=== PATIENT | male | born 1955 | race African-American/Black ===

== ENCOUNTER 2019-08-23 10:19 | Inpatient (IN) | payer MEDICAID, OTHER ==
[~2019-08-23] VITALS: Ht 185.4 cm; Wt 77.3 kg
[2019-08-23] MEDS ORDERED: SODIUM CHLORIDE 0.9% 1,000 ML IV ONE (10:41)
[2019-08-23] MEDS ORDERED: LORAZEPAM 2MG/ML CPJ IM STA (10:43)
[2019-08-23] MEDS ORDERED: OLANZAPINE 10 MG/VIAL IM ONE (10:45)
[2019-08-23 11:41] LABS: *AMPHETAMINES SCREEN URINE PRESUMTIVE POSITIVE (NEGATIVE)
[2019-08-23 11:42] LABS: *BARBITURATES SCREEN URINE NEGATIVE (NEGATIVE); *BENZODIAZEPINES SCREEN URINE NEGATIVE (NEGATIVE); *COCAINE SCREEN URINE PRESUMTIVE POSITIVE (NEGATIVE); METHADONE URINE SCREEN NEGATIVE (NEGATIVE); OPIATES URINE SCREEN NEGATIVE (NEGATIVE); PHENCYCLIDINE URINE SCREEN NEGATIVE (NEGATIVE)
[2019-08-23 11:43] LABS: CANNABINOID URINE SCREEN PRESUMTIVE POSITIVE (NEGATIVE)
[2019-08-23 11:49] LABS: BASOPHILS % 0.4 % (0.0-2.0); EOSINOPHILS % 0.8 % (0.0-5.0); HEMATOCRIT. 41.2 % (42.0-52.0); LYMPHOCYTES % 28.9 % (20.0-50.0); MEAN CORPUSCULAR HEMOGLOBIN 29.2 pg (28.0-32.0); MEAN CORPUSCULAR VOLUME 85.9 fL (80.0-94.0); MEAN PLATELET VOLUME 8.7 fl (7.4-10.4); MONOCYTES % 14.4 % (2.0-8.0); NEUTROPHILS % 55.5 % (40.0-76.0); PLATELET 105 x1000/uL (130-400); RED BLOOD CELL COUNT 4.79 mill/uL (4.7-6.1); RED CELL DISTRIBUTION WIDTH 15.6 % (11.6-14.6)
[2019-08-23 11:51] LABS: CHLORIDE 103 mEq/L (98-107)
[2019-08-23 11:56] LABS: ETHANOL BLOOD < 10 mg/dL
[2019-08-23] MEDS ORDERED: ASPIRIN 325MG EC TABLET PO ONE (12:15)
[2019-08-23] MEDS ORDERED: IPRATROPIUM/ALBUTEROL 0.5-3(2.5)MG/3ML NEB HHN PRN ×2 (16:00→17:45)
[2019-08-23] MEDS ORDERED: DOCUSATE SODIUM 100MG CAPSULE PO PRN (16:00)
[2019-08-23] MEDS ORDERED: ONDANSETRON HCL 4MG/2ML INJ IV PRN (16:00)
[2019-08-23] MEDS ORDERED: ACETAMINOPHEN 325MG TABLET PO PRN (16:00)
[2019-08-23] MEDS ORDERED: HYDROCODONE/ACETAMINOPHEN 5/325MG TABLET PO PRN (16:00)
[2019-08-23] MEDS ORDERED: CLONIDINE 0.1MG TABLET PO PRN (16:00)
[2019-08-23] MEDS ORDERED: LORAZEPAM 0.5MG TABLET PO PRN (16:00)
[2019-08-23 16:42] LABS: BG BASE EXCESS -1.5 mmol/L (-2.0-2.0); BG CARBOXYHEMOGLOBIN 1.6 % (0.5-1.5); BG DEOXYHEMOGLOBIN 2.5 % (0.0-5.0); BG FRACTION INSPIRED OXYGEN 21; BG HCO3 ACT 22.9 mmol/L (22.0-26.0); BG METHEMOGLOBIN 0.3 % (0.0-1.5); BG OXYGEN SATURATION 97.5 % (92.0-98.5); BG OXYHEMOGLOBIN 95.6 % (94.0-97.0); BG PCO2 37.6 mmHg (35.0-45.0); BG PH 7.402 (7.350-7.450); BG PO2 107.5 mmHg (75.0-100.0); BG SAMPLE SITE RIGHT RADIAL; BG TOTAL HEMOGLOBIN 13.3 g/dL (12.0-18.0); BG VENT MODE ROOM AIR
[2019-08-23 16:45] LABS: HEPATITIS B SURFACE ANTIGEN NEGATIVE
[2019-08-23 17:15] LABS: HEPATITIS A AB IGM NEGATIVE (NEGATIVE)
[2019-08-23 17:24] LABS: VITAMIN B12 SERUM 366 pg/mL (211-911)
[2019-08-23 17:25] LABS: FOLIC ACID (FOLATE) SERUM > 20.00 ng/mL (>5.38)
[2019-08-23] MEDS ORDERED: IOHEXOL-300 100 ML BOTTLE ONE (18:14)
[2019-08-23 19:05] LABS: D-DIMER 0.52 mg/L FEU (<0.50); INR 1.1; PROTHROMBIN TIME 11.8 sec (9.6-11.0)
[2019-08-23] MEDS ORDERED: ASPIRIN 325MG EC TABLET PO NR (21:45)
[2019-08-23] MEDS ORDERED: KCL 20MEQ/100ML PREMIX 100 ML IV NR (22:30)
[2019-08-23] MEDS: CHLORDIAZEPOXIDE 25MG CAPSULE PO SCH (22:46)
[2019-08-24 05:32] LABS: BASOPHILS % 0.5 % (0.0-2.0); EOSINOPHILS % 4.9 % (0.0-5.0); HEMATOCRIT. 38.5 % (42.0-52.0); HEMOGLOBIN. 13.1 g/dL (14.0-18.0); LYMPHOCYTES % 39.2 % (20.0-50.0); MEAN CORPUSCULAR HEMOGLOBIN 29.6 pg (28.0-32.0); MEAN CORPUSCULAR VOLUME 86.8 fL (80.0-94.0); MEAN PLATELET VOLUME 8.8 fl (7.4-10.4); MONOCYTES % 12.3 % (2.0-8.0); NEUTROPHILS % 43.1 % (40.0-76.0); PLATELET 81 x1000/uL (130-400); RED BLOOD CELL COUNT 4.44 mill/uL (4.7-6.1); RED CELL DISTRIBUTION WIDTH 15.7 % (11.6-14.6)
[2019-08-24 05:40] LABS: CHLORIDE 108 mEq/L (98-107)
[2019-08-24] MEDS: CHLORDIAZEPOXIDE 25MG CAPSULE PO SCH ×3 (07:30→21:00)
[2019-08-24 09:00] VITALS: BP 116/59
[2019-08-24] MEDS ORDERED: ASPIRIN 325MG EC TABLET PO SCH (11:00)
[2019-08-24 16:00] VITALS: BP 109/70
[2019-08-24] MEDS: FOLIC ACID 1MG TABLET PO SCH (16:01)
[2019-08-24] MEDS: THIAMINE HCL 100MG TABLET PO SCH (16:01)
[2019-08-24] MEDS: MULTIVITAMINS,THER W-MINERALS TABLET PO SCH (16:01)
[2019-08-24 20:00] VITALS: BP 138/63
[2019-08-25] VITALS: BP 103/59
[2019-08-25 04:00] VITALS: BP 111/60
[2019-08-25 05:17] LABS: HIV SCREEN 4G Non Reactive (Non Reactive)
[2019-08-25] MEDS: CHLORDIAZEPOXIDE 25MG CAPSULE PO SCH ×2 (06:09→14:29)
[2019-08-25 07:09] LABS: BASOPHILS % 0.6 % (0.0-2.0); EOSINOPHILS % 4.5 % (0.0-5.0); HEMATOCRIT. 38.7 % (42.0-52.0); LYMPHOCYTES % 51.4 % (20.0-50.0); MEAN CORPUSCULAR VOLUME 86.3 fL (80.0-94.0); MEAN PLATELET VOLUME 8.8 fl (7.4-10.4); MONOCYTES % 11.3 % (2.0-8.0); NEUTROPHILS % 32.2 % (40.0-76.0); PLATELET 86 x1000/uL (130-400); RED BLOOD CELL COUNT 4.49 mill/uL (4.7-6.1)
[2019-08-25 07:22] LABS: CHLORIDE 109 mEq/L (98-107)
[2019-08-25 07:33] LABS: T4 FREE 1.27 ng/dL (0.76-1.46)
[2019-08-25 08:00] VITALS: BP 100/73
[2019-08-25] MEDS: FOLIC ACID 1MG TABLET PO SCH (09:07)
[2019-08-25] MEDS: MULTIVITAMINS,THER W-MINERALS TABLET PO SCH (09:07)
[2019-08-25] MEDS: THIAMINE HCL 100MG TABLET PO SCH (09:07)
[2019-08-25 12:00] VITALS: BP_SYST 109; BP_SYST 115; BP_SYST 85; BP_DIAS 54; BP_DIAS 56; BP_DIAS 68
[2019-08-25] MEDS ORDERED: IOHEXOL-350 100 ML BOTTLE ONE (13:53)
[2019-08-26] MEDS ORDERED: FUROSEMIDE 40MG TABLET PO SCH (09:00)
[2019-08-26] MEDS ORDERED: LISINOPRIL 2.5MG TABLET PO SCH (09:00)
== END 2019-08-25 15:40 | disposition left against medical advice (07) | DRG 816 ==
LOC: ER 10:19 → 5WST 12:16 → EDBEDREQ 12:24 → ENRESERV 08-24 07:57
PROVIDERS: ADMIT Internal Medicine; ATTEND Internal Medicine
PROC: 4A00X4Z Measurement of Central Nervous Electrical Activity, External Approach (ICD-10-PCS; principal; 2019-08-25)
DX: T59.891A Toxic effect of other specified gases, fumes and vapors, accidental (unintentional), initial encounter (principal); J96.00 Acute respiratory failure, unspecified whether with hypoxia or hypercapnia; G92 Toxic encephalopathy; E44.0 Moderate protein-calorie malnutrition; D69.6 Thrombocytopenia, unspecified; G90.8 Other disorders of autonomic nervous system; I42.0 Dilated cardiomyopathy; I50.9 Heart failure, unspecified; I11.0 Hypertensive heart disease with heart failure; J68.0 Bronchitis and pneumonitis due to chemicals, gases, fumes and vapors; N28.1 Cyst of kidney, acquired; F14.10 Cocaine abuse, uncomplicated; F12.10 Cannabis abuse, uncomplicated; E87.6 Hypokalemia; E07.9 Disorder of thyroid, unspecified; B18.2 Chronic viral hepatitis C; F17.200 Nicotine dependence, unspecified, uncomplicated; R00.0 Tachycardia, unspecified; R74.0 Nonspecific elevation of levels of transaminase and lactic acid dehydrogenase [LDH]; F10.20 Alcohol dependence, uncomplicated; E04.9 Nontoxic goiter, unspecified; R22.2 Localized swelling, mass and lump, trunk; F15.10 Other stimulant abuse, uncomplicated; R90.82 White matter disease, unspecified; R91.1 Solitary pulmonary nodule; I49.1 Atrial premature depolarization; Z53.21 Procedure and treatment not carried out due to patient leaving prior to being seen by health care provider; Z59.0 Homelessness; Z79.899 Other long term (current) drug therapy; Z80.42 Family history of malignant neoplasm of prostate; Y92.89 Other specified places as the place of occurrence of the external cause; Z68.22 Body mass index [BMI] 22.0-22.9, adult
CPT/HCPCS: 36415; 36600; 70496; 70498; 70551; 71045; 71260; 76536; 76700; 80048; 80061; 80076; 80305; 80320; 82140; 82248; 82375; 82607; 82746; 82805; 82962; 83036; 83735; 84439; 84443; 84481; 84484; 85379; 86705; 86709; 86803; 87340; 87389; 93005; 93306; 93970; 99285; J2060; J3480; J3490; J7030; Q9967; G0480